=== PATIENT | female | born 1995 | race Caucasian/White ===

== ENCOUNTER 2020-02-10 10:04 | Emergency (ER) | payer BC ==
[~2020-02-10] VITALS: Ht 162.6 cm; Wt 86.2 kg
[2020-02-10 10:21] VITALS: BP 125/60
--- NOTE | 2020-02-10 10:21 | NUR ---
ED Nurse Note: Patient walked in to ED from home c/o left middle toe pain x 5 days. Per pt, she jammed her toe into an object and states swelling went down but still painful. Pt able to walk with steady gait.
--- NOTE | 2020-02-10 10:51 | Emergency Room Report ---
History of Present Illness General Chief Complaint: Pain Source: Patient Present Illness HPI 25-year-old female presents with left middle toe pain. States that she stubbed her toe a few days ago and is still having pain. States there is bruising which is slowly improving. States there is also swelling which is also improving. Throbbing, 7 out of 10, nonradiating. Is able to bear weight. Denies any other injuries. No other aggravating relieving factors. 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 Patient History Past Medical History: none Past Surgical History: none Pertinent Family History: none Social History: Denies: smoking, alcohol use, drug use Last Menstrual Period: 02/05/20 Now: No Immunizations: UTD Reviewed Nursing Documentation: PMH: Agreed; PSxH: Agreed Nursing Documentation-PMH Past Medical History: No Stated History Review of Systems All Other Systems: negative except mentioned in HPI Physical Exam Vital Signs Date Time Temp Pulse Resp B/P (MAP) Pulse Ox O2 Delivery O2 Flow Rate FiO2 02/10/20 10:16 98.4 83 16 125/60 (81) 99 Room Air Sp02 EP Interpretation: reviewed, normal General Appearance: no apparent distress, alert, GCS 15, non-toxic Head: normocephalic Eyes: bilateral eye normal inspection, bilateral eye PERRL ENT: normal ENT inspection Neck: normal inspection Respiratory: normal inspection Cardiovascular #1: normal inspection Gastrointestinal: normal inspection Rectal: deferred Genitourinary: no CVA tenderness Musculoskeletal: tender - L middle toe. bruising noted Neurologic: alert, motor strength/tone normal, oriented x3, sensory intact, responsive, speech normal Psychiatric: normal inspection Skin: no rash Lymphatic: normal inspection Procedures Splinting Splinting : Consent: Verbal Splint: blayne tape Pre-Proc Neuro Vasc Exam: normal Post-Proc Neuro Vasc Exam: normal Patient Tolerated: Well Complications: None Medical Decision Making Diagnostic Impression: Primary Impression: Toe contusion Qualified Codes: S90.112A - Contusion of left great toe without damage to nail , initial encounter ER Course Hospital Course 25 yo F presents with L middle toe pain Differential diagnoses include: Fracture, dislocation, sprain, contusion Clinical course Patient placed on stretcher. After initial history and physical, I ordered Xrays L foot. patient declined pain meds Xrays read shows no acute fracture/dislocation. blayne tape applied likely contusion. we will blayne tape for comfort. safe for discharge with close outpatient followup. i'll provide referrals Diagnosis - toe contusion Stable and discharged to home. apply ice, keep elevated. weight bear as tolerated. Followup with PMD. Return to ED if symptoms recur or worsen Other X-Ray Diagnostic Results Other X-Ray Diagnostic Results : X-Ray ordered: L foot # of Views/Limited Vs Complete: 3 View Indication: Pain EP Interpretation: Yes Interpretation: no dislocation, no soft tissue swelling, no fractures Impression: No acute disease Electronically Signed by: Electronically signed by Eldon Velazquez MD Last Vital Signs Date Time Temp Pulse Resp B/P (MAP) Pulse Ox O2 Delivery O2 Flow Rate FiO2 02/10/20 10:21 98.4 83 16 125/60 99 Room Air Status: improved Disposition: HOME, SELF-CARE Condition: Stable Referrals: FELIPE GARRISON MD (PCP) Eldon Velazquez MD Feb 10, 2020 10:51
--- NOTE | 2020-02-10 10:55 | NUR ---
ED Nurse Note: Xray at bedside.
--- NOTE | 2020-02-10 11:11 | Diagnostic Imaging Report ---
EXAM: XR Left Foot Complete, 3 Views CLINICAL HISTORY: PAIN TECHNIQUE: Frontal, lateral and oblique views of the left foot. COMPARISON: Report from left foot x-rays dated 02/09/20. No images available for direct comparison. FINDINGS: Bones/joints: Unremarkable. No visible displaced fracture. No dislocation. No osseous erosions. Visualized joint spaces appear unremarkable. Soft tissues: Mild soft tissue swelling overlying the lateral forefoot and possibly the great toe. No radiodense foreign bodies. No soft tissue gas lucencies. IMPRESSION: Mild soft tissue swelling overlying the lateral forefoot and possibly the great toe. No radiodense foreign bodies. No soft tissue gas lucencies.
[2020-02-10 11:29] VITALS: BP 130/74
--- NOTE | 2020-02-10 11:29 | NUR ---
ER DISCHARGE NOTE: Patient is cleared to be discharged per ERMD, pt is aox4, on room air, with stable vital signs. pt was given dc and prescription instructions, pt was able to verbalize understanding, pt id band removed without complications. pt is able to ambulate with steady gait. pt took all belongings.
== END 2020-02-10 11:29 | disposition home or self-care (01) ==
LOC: EMR 10:25
DX: S90.112A Contusion of left great toe without damage to nail, initial encounter (principal); X58.XXXA Exposure to other specified factors, initial encounter; Y92.9 Unspecified place or not applicable; Z88.0 Allergy status to penicillin
CPT/HCPCS: 99283